=== PATIENT | male | born 1970 | race Caucasian/White ===

== ENCOUNTER 2023-05-21 06:15 | Day surgery (SDC) | payer BC, SELFPAY ==
[2023-05-21] VITALS (10 sets, daily range): BP systolic 139–154; BP diastolic 83–99; PULSE 72–84; RESP 16–18; TEMP 36.4–36.6; O2SAT 98–99; BMI 27.1
--- OUTSIDE RECORDS SUMMARY | 2023-05-21 06:18 | XMS_ITS | Continuity of Care Document ---
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 Name Role Phone Cynthia Kothari MD Unavailable Unavailable Procedures Procedure Date Office/outpatient visit[facility], [facility] 2009 X-ray exam of neck spine2-3 views Office[facility]patient visit[facility], [facility] 2009 X-ray exam of neck spine2-3 views Postop followup visit X-ray exam of neck spine2-3 views Remove Cerv spine disk, single 10 Neck spine fusion (cerv,below C2) Insert spine fix dev, ant, 2-3 seg Feb- Allograft, spine surg, structural Assist Remove Cerv spine disk, single Fe Assist Cervical spine fusion (cerv,below C2) Assist Insert spine fix dev, ant, 2-3 se g Office consultation, low X-ray exam of spine, single view 2009 Advance Directives Directive Yes / No Effective Date File Name No Information Encounters Encounter Description Practice Location Reason(s) For Visit Diagnoses Date Provider Providers Copied on Encounter Office/outpat ient visit,est, low [facility], [address], [place], [address], [place] tel:[phone] [facility] No Information 0 Saniya Constantino [facility], [address], [place], [place], [address] , [place]. tel: [phone] Office/outpat ient visit,est, low [facility], [address], [place], [address], [place] tel:[phone] [employer] No Information May-0 3-201 0 Mehbod Amir. [facility], [address], [place], [place], [address] , [place]. tel: [phone] [facility], [address] [place], [place] [address], [place], [place], [facility], [place] tel:[phone] No Information Aug-1 5-201 0 Mehbod Amir. [facility], [address], [place], [place], [address] , [place]. tel: [phone] [facility], [address] [place] [address] 600, [place], [place], [facility], [place] tel:[phone] [facility] No Information Feb-1 0-201 0 Mehbod Amir. [facility], [address], [place], [place], [address] , [place]. tel: [phone] Office consultation, low [facility], [address] [place] [address] 600, [place], [place], [facility], [place] tel:[phone] [employer] No Information Feb-0 1-201 0 Mehbod Amir. [facility] [place], [address], [place], [place], [address] , [place]. tel: [phone] Family History Family Member Type Diagnosis Age At Onset No Information Payers Payer name Insurance type Covered constitution party ID Oziel kirkmary(s) [facility] [id number] Social History Type Description Quantity Date Captured Comments Sex Male Smoking Status No Information Chief Complaint And Reason For Visit No Information Reason For Referral Reason For Referral No Information History Of Present Illness Encounter Date Complaint History Of Prese nt Illness No Information Functional Status Date Functional Assessmen t No Information Instructions Date Instruction Additional Infor mation No Information Assessments Type Assessment Date No Information Patient Care Teams Name Effective Dates (start - stop) Status Members No Information
--- OUTSIDE RECORDS SUMMARY | 2023-05-21 06:18 | XMS_ITS | Continuity of Care Document ---
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 Name Role Phone Yesi Fulton CRNA Unavailable Unavailable Allergies, Adverse Reactions, Alerts Substance Reaction Status Criticality No Known Allergies Active No Inform ation No Known Drug Allergies Active No I nformation Medications Medication Instructions Dosage Effective Dates (start - stop) Status Comments No Drug Therapy Prescribed Procedures Procedure Date Colonoscopy Flex; Dx (sep Pro) 22 Colonoscopy Flex; W/remov Les- 19 Level Iv-surg Path Gross/micro 19 Colonoscopy Flex; W/remov Les- 16 Level Iv-surg Path Gross/micro 16 Colonoscopy Flex; W/remov Les- 11 Level Iv-surg Path Gross/micro 11 Advance Directives Directive Yes / No Effective Date File Name No Information Encounters Encounter Description Practice Location Reason(s) For Visit Diagnoses Date Provider Providers Copied on Encounter [facility], [address] [address], [place], [place], [address], [place] tel:[phone] [facility] [place] No Information Donaldo Key. [address] [facility], [place], [place], [address], [place]. tel:[phone] [facility], [address] [address], [place], [place], [address], [place] tel:[phone] [facility] GI Symptoms or Concerns (chief complaint) Screening ColonoscopyPer bhaskar history of colonic polypsDvrtclos of lg int w/o perforation or abscess w/o bleedingFamily history of malignant neoplasm of digestive organsEncounte r for screening for malignant neoplasm of colonPersonal history of colonic polyps 2 No Information Referring Provider: Referral Self, USE FOR SELF REFERRALS. [facility], [address] [address], [place], [address], [place] tel:[phone] [facility] [address] No Information 2 Romulo Jaeger. [address] [facility], [facility] [address], [place], [place], [address], [place]. tel:[phone] [facility] [employer] [facility], [address] [address], [facility] [place], [address], [place] tel:[phone] [facility] Screening ColonoscopyCol orectal polypsDivertic ulosis of colon without diverticulitis Benign neoplasm of descending colonBenign neoplasm of ascending colonPersonal history of colonic polypsEncounte r for screening for malignant neoplasm of colon 9 Baylee Meng. [address] [facility], [facility] [address], [place], [place], [address], [place]. tel:[phone] [facility], [address] [address], [facility] [place], [address], [place] tel:[phone] [facility] Colon polypsEncounte r for screening for malignant neoplasm of colonBenign neoplasm of ascending colonBenign neoplasm of descending colon 6 No Information Referring Provider: Kellee An PAC, [address], [place], [address]. tel:[phone] [facility], [address] [address], [place], [address], [place] tel:[phone] [facility] Polyp-intes/re ct/stom-unc BehColon Cancer ScreeningBenig n Neoplasm ColonFamily Hx GI Tract CancerColon Cancer ScreeningFamil y Hx GI Tract CancerBenign Neoplasm Colon Nov- 1 Pascual Tipton. [address] [facility], [place] [address], [place], [place], [address], . tel:[phone] Referring Provider: Sly Kramer MD D, [address] [facility] [address], [place], [address]. tel:[phone] Family History Family Member Type Diagnosis Age At Onset Mother Problem (finding) Alive and well Father Problem (finding) Brother Problem (finding) Colon polyps Father Problem (finding) cancer of colon Immunizations Vaccine Date Status Comments SARS-COV-2 (COVID-19) vaccin e, mRNA, spike protein, LNP, preservative free, 30 mcg/0.3mL dose administered Note: [facility] bi-direct ional interface ; Source: Other Registry Pneumovax 23 administered Note: [facility] bi-d irectional interface ; Source: Other Registry Afluria Qd administered Note: [facility] bi-directional interface ; Source: Other Registry tetanus and diphtheria toxoi ds, adsorbed, preservative free, for adult use (5 Lf of tetanus toxoid and 2 Lf of diphtheria toxoid) administered Note: [facility] bi-direct ional interface ; Source: Other Registry SARS-COV-2 (COVID-19) vaccin e, vector non-replicating, recombinant spike protein-Ad26, preservative free, 0.5 mL administered Note: [facility] bi- directional interface ; Source: Other Registry Afluria Qd administered Note: [facility] bi-directional interface ; Source: Other Registry Afluria Qd administered Note: [facility] bi-directional interface ; Source: Other Registry Influenza, seasonal, injectable administe red Note: [facility] bi- directional interface ; Source: Other Registry Engerix-B administered Note: [facility] bi-d irectional interface ; Source: Other Registry Influenza, seasonal, injectable administe red Note: [facility] bi- directional interface ; Source: Other Registry Havrix administered Note: [facility] bi-d irectional interface ; Source: Other Registry Engerix-B administered Note: [facility] bi-d irectional interface ; Source: Other Registry tetanus toxoid, reduced diphtheria toxoid, and acellular pertussis vaccine, adsorbed administered Note: [facility] b i-directional interface ; Source: Other Registry Engerix-B administered Note: [facility] bi-d irectional interface ; Source: Other Registry Havrix administered Note: [facility] bi-d irectional interface ; Source: Other Registry Payers Payer name Insurance type Covered constitution party ID Oziel stephens(s) [place] Individual Family 16 [id number] Social History Type Description Quantity Date Captured Comments Sex Male Smoking Status No Information Chief Complaint And Reason For Visit No Information Reason For Referral Reason For Referral No Information History Of Present Illness Encounter Date Complaint History Of Prese nt Illness GI Symptoms or Concerns Functional Status Date Functional Assessmen t No Information Medications Administered Medication Instructions Dosage Effective Dates (start - stop) Status Comments No Drug Therapy Prescribed Instructions Date Instruction Additional Infor travis Colon Cancer Prevention Related to Screening Colonoscopy Diverticulosis/Diverticulitis Re lated to Screening Colonoscopy High Fiber Diet Related to Scree yulisa Colonoscopy Assessments Type Assessment Date No Information Patient Care Teams Name Effective Dates (start - stop) Status Members No Information
--- OUTSIDE RECORDS SUMMARY | 2023-05-21 06:19 | XMS_ITS | Continuity of Care Document ---
Author Name Unknown Organization [facility] Address [address] [address] [place] [address] Phone Care Team Providers Care Purchasing Internship Name Role Phone Yesi Fulton CRNA Unavailable [...] Diagnoses Date Provider Providers Copied on Encounter [facility], [address] [address], [place], [place], [address], [place] tel:[phone] [facility] [place] [employer] No Information Donaldo Key. [address] [facility], [place], [place], [address], [place]. tel:[phone] [facility], [address] [address], [place], [place], [address], [place] tel:[phone] [facility] GI Symptoms or Concerns (chief complaint) Screening ColonoscopyPer bhaskar history of colonic polypsDvrtclos of lg int w/o perforation or abscess w/o bleedingFamily history of malignant neoplasm of digestive organsEncounte r for screening for malignant neoplasm of colonPersonal history of colonic polyps 2 No Information Referring Provider: Referral Self, USE FOR SELF REFERRALS. [facility], [address] [address], [place], [place], [address], [place] tel:[phone] [facility] No Information 2 Romulo Jaeger. [address] [facility], [facility] [[email or web address] [address], [place], [place], [address], [place]. tel:[phone] [facility], [address] [address], [facility] [place], [address], [place] tel:[phone] [facility] Screening ColonoscopyCol orectal polypsDivertic ulosis of colon without diverticulitis Benign neoplasm of descending colonBenign neoplasm of ascending colonPersonal history of colonic polypsEncounte r for screening for malignant neoplasm of colon 9 Baylee Meng. [address] [facility], [facility] [[email or web address] [address], [place], [place], [address], [place]. tel:[phone] [facility], [address] [address], [facility] [place], [address], [place] tel:[phone] [facility] Colon polypsEncounte r for screening for malignant neoplasm of colonBenign neoplasm of ascending colonBenign neoplasm of descending colon 6 No Information Referring Provider: Kellee An PAC, [address], [place], [address]. tel:[phone] [facility], [address] [address], [place], [place], [address], [place] tel:[phone] [facility] Polyp-intes/re ct/stom-unc BehColon Cancer ScreeningBenig n Neoplasm ColonFamily Hx GI Tract CancerColon Cancer ScreeningFamil y Hx GI Tract CancerBenign Neoplasm Colon Nov- 1 Pascual Tipton. [address] [facility], [place] [address], [place], [place], [address], . tel:[phone] Referring Provider: Sly Kramer MD D, [address] [facility] [address], [place], [address]. tel:[phone] Family History Family Member Type Diagnosis Age [...] Registry Payers Payer name Insurance type Covered democrat ID Oziel stephens(s) [place] Individual Family 16 [id number] Social History Type Description Quantity Date Captured [...]
--- OUTSIDE RECORDS SUMMARY | 2023-05-21 06:19 | XMS_ITS | Continuity of Care Document ---
Author Name Unknown Organization Z [facility] [place] Address [address] [place] [address] Phone Care Team Providers Care Sliding Joint Maker Name Role Phone Cynthia Kothari MD Unavailable Unavailable Procedures Procedure Date [facility] X-ray exam of neck spine2-3 views [facility] X-ray exam of neck spine2-3 views [...] on Encounter Office/outpat ient visit,est, low Z [facility], [address], [place], [address], [place] tel:[phone] [facility] No Information 0 Saniya Constantino [facility], [address], [place], [place], [address] , [place]. tel: [phone] Office/outpat ient visit,est, low [facility], [address] [facility], [place], [address], [place] tel:[phone] [facility] No Information May-0 3-201 0 Mehbod Amir. [facility], [address], [place], [place], [address] , [place]. tel: [phone] [facility], [address] [place], [place] [address] [address], [place], [place], [facility], [place] tel:[phone] No Information Aug-1 5-201 0 Mehbod Amir. [facility], [address], [place], [place], [address] , [place]. tel: [phone] [facility], [address] [place] [address] 600, [place], [facility], [place] tel:[phone] [facility] No Information Feb-1 0-201 0 Mehbod Amir. [facility], [address], [place], [place], [address] , [place]. tel: [phone] Office consultation, low Z [facility], [address] [place] [address] 600, [place], [place], [facility], [place] tel:[phone] [facility] No Information Feb-0 1-201 0 Mehbod Amir. [facility], [address], [place], [place], [address] , [place]. tel: [phone] Family History Family Member Type Diagnosis Age At Onset No Information Payers Payer name Insurance type Covered green party ID Oziel kirkmary(s) [facility] [id number] Social History Type Description Quantity Date Captured [...]
[2023-05-21] MEDS: BUPIVACAINE 0.5% 30 ML INJECTION (07:17)
[2023-05-21] MEDS: lidocaine HCL 2 % MULTIDOSE 20 ML VIAL INJECTION (07:17)
--- NOTE | 2023-05-21 07:44 | P.ORPRC_ITS ---
Procedure Note Date of procedure: 05/21/23 Procedure: Preop diagnosis: Right thumb stenosing tenosynovitis Postop diagnosis: Right thumb stenosing tenosynovitis Procedure: Right thumb A1 mariah release Anesthesia: Local Surgeon: Vince Archuleta MD first assistant manager: Crista Garcia PA-C EBL: 0 mL Complications: None Specimens: None Drains: None Preoperative antibiotics: None Indications: The patient has a history of right thumb painful catching and locking. Despite appropriate non operative management including flexor tendon sheath corticosteroid injections they continue to have symptoms. Operative intervention was recommended. The risks, benefits alternatives and expected outcomes were discussed in detail. These included but were not limited to: Infection, bleeding, injury to blood vessel or nerve, venous thromboembolism. All questions were answered to their satisfaction. The patient was placed supine on the operating room table. Local anesthesia was established with 0.5% Marcaine without epinephrine and 2% lidocaine without epinephrine. The hand was prepped and draped in usual sterile fashion. The limb was elevated the forearm pneumatic tourniquet was inflated to 250 mm of mercury. A transverse incision was made centered over the base of the thumb in the MP flexion crease. Subcutaneous dissection was taken through the palmar fascia to the flexor tendons with the tenotomy scissors. The A1 mariah was markedly thickened. It was released with the 15 blade and the tenotomy scissors. The edges of the mariah were excised with the 15 blade. There was a minimal amount of superficial tendinopathy of the flexor tendons at the level of the A1 mariha. Active flexion and extension of the thumb shows no catching or locking, no bowstringing of the flexor tendons. The wound was closed with interrupted nylon sutures. A dry dressing was applied the tourniquet was released. Sponge and needle counts were correct x 2. The patient tolerated the procedure well, there were no apparent complications. They were sent to same day surgery in satisfactory condition. Plan: Use of the hand as tolerates. Discontinue the intraoperative dressing on postoperative day 3 and may get the wound wet as tolerates. Follow up in the office in 2 weeks for a wound check and suture removal.
== END 2023-05-21 08:10 | disposition home or self-care (01) ==
PROVIDERS: Visit Provider Orthopaedic Surgery
PROC: (CPT 26055; principal; 2023-05-21 07:15)
DX: M65.311 Trigger thumb, right thumb (principal); M65.841 Other synovitis and tenosynovitis, right hand
CPT/HCPCS: 26055; J0665